=== PATIENT | female | born 1980 | race American Indian/Alaskan Native ===

== ENCOUNTER 2017-07-23 17:21 | Outpatient (CLI) | payer BC | END 2017-07-23 18:25 | disposition home or self-care (01) | LOC: RAD 17:21 | DX: M54.89 Other dorsalgia (principal) ==

== ENCOUNTER 2017-12-10 11:57 | Outpatient (CLI) | payer OTHER | END 2017-12-10 13:00 | disposition home or self-care (01) | LOC: RAD 11:57 | DX: R50.9 Fever, unspecified (principal) ==

== ENCOUNTER 2019-12-06 11:39 | Emergency (ER) | payer OTHER ==
[~2019-12-06] VITALS: Ht 162.6 cm; Wt 49.9 kg
[2019-12-06 12:13] VITALS: TEMP 99.2
[2019-12-06 14:39] LABS: PLATELET COUNT 238 K/uL (152-353)
[2019-12-06 14:43] LABS: POTASSIUM 3.4 mmol/L (3.6-5.2)
[2019-12-06 16:45] VITALS: BP 139/72
== END 2019-12-06 16:45 | disposition home or self-care (01) ==
LOC: ED 11:39
PROVIDERS: Family Medicine
DX: K58.8 Other irritable bowel syndrome (principal); E87.6 Hypokalemia; L30.8 Other specified dermatitis
CPT/HCPCS: 80053; 81000; 81025; 85027; 99283